=== PATIENT | male | born 1940 | race Caucasian/White ===

== ENCOUNTER 2018-06-15 14:32 | Inpatient (IN) ==
--- NOTE | 2018-06-15 17:49 | Urology - Consult Note ---
Date of Encounter: 06/15/18 Time of Encounter: 17:47 - Assessment and Plan (1) Hematuria, gross Current Visit: Yes Status: Acute Assessment and plan: Likely from multiple attempts at catheter placement at the outside facility. Hopefully will resolve with catheter drainage. If no resolution may need to change to a larger catheter. Hold all anticoagulation if possible (2) Urinary retention Current Visit: Yes Status: Acute Assessment and plan: Unknown etiology but may be from urethral stricture or BPH. Difficulty placing Holliday catheter to outside facility. Continue catheter drainage at least 1 week prior to removal to allow return of elasticity of the bladder. May need to change larger catheter if it seems to be providing unreliable urinary drainage (3) Renal insufficiency Current Visit: Yes Status: Acute Assessment and plan: Unknown baseline creatinine. Postobstructive renal insufficiency needs to be considered. We will reevaluate creatinine in the morning. If still elevated may consider ultrasound. Urology CN:HAIDER Consult date: 06/15/18 Reason for consult Urology: Gross Hematuria History of present illness: 77-year-old male. Transfer from [facility]. New to the urology service. 3 month history of difficulty urinating. He went to [facility] emergency room and they attempted to place a 16 and 14-Georgian catheter without success. They were eventually able to place a 12-Georgian catheter with return of 1000 mL of urine which was bloody. He was transferred to our facility for urologic management. Incidentally his creatinine was found to be over 3. Patient is unsure of his baseline Past Med Surg Social Fam HX - Past Medical History Medical history: atrial fibrillation, dementia, glaucoma, hyperlipidemia, hypertension - Past Surgical History Surgical History: pacemaker/AICD, pacemaker - Social History Smoking Status: Never smoker Alcohol use: none Drug use: none Medications and Allergies Brimonidine Tartrate [Brimonidine Tartrate] 1 drop RIGHT EYE BID 06/15/18 [ History] Donepezil [Aricept] 10 mg PO DAILY 06/15/18 [History] Latanoprost [Xalatan] 1 drop BOTH EYES HS 06/15/18 [History] Simvastatin [Zocor] 40 mg PO DAILY 06/15/18 [History] 3 Allergy/AdvReac Type Severity Reaction Status Date / Time No Known Allergies Allergy Verified 06/15/18 17:04 Review of Systems - Constitutional no chills, no fever(s) - EENT Nose, mouth and throat: no dizziness - Cardiovascular no chest pain - Respiratory no cough - Gastrointestinal abdominal pain - Genitourinary difficulty urinating, hematuria - Musculoskeletal back pain - Integumentary no erythema - Neurological no confusion - Psychiatric no anxiety - Hematologic/Lymphatic no easy bleeding - Allergic/Immunologic no throat swelling Exam Initial Vital Signs Temp Pulse Resp BP Pulse Ox 99.1 F 66 16 190/87 95 06/15/18 17:10 06/15/18 17:10 06/15/18 17:10 06/15/18 17:10 06/15/18 17:10 - General physical appearance Present: no distress, no pain - Eyes Present: PERRL - ENT Present: normal nares - Neck Present: no masses - Respiratory Present: normal respiratory effort - Cardiovascular Cardiovascular exam IM: RRR - Abdomen Abdomen: Present: soft. Absent: suprapubic tenderness - Genitourinary normal penis with no external lesions (Dry blood) - Neurologic Present: normal coordination, confused (Patient answered most questions appropriately but did talk about multiple things not pertinent to the current situation including his dislike for coffee and information regarding his primary care physician.). Absent: disoriented - Additional Findings 12-Georgian Holliday catheter in place draining transparent lightly hematuric urine Urology Results - Labs All other labs normal. Consult Discharge Plan - Plan Referrals: Kenn Seals DO [Primary Care Provider] -
[2018-06-15] MEDS ORDERED: Naloxone 0.4 MG/ML INJ IVP PRN (18:26)
[2018-06-15] MEDS: 0.9 % Sodium Chloride 1,000 ML IVC SCH (19:12)
--- NOTE | 2018-06-15 20:11 | Internal Med History&Physical ---
Date of Encounter: 06/15/18 Time of Encounter: 19:00 Internal Medicine - H&P: HPI Chief complaint: Difficulty voiding Admitted From: Emergency Dept Plans for Post Hospital Care: Home History of present illness: HPI: Mr. Guzman is a 77 year old male. He has had progressing difficulty voiding for the last 34 weeks. It got significantly worse in the last her 45 days. He developed suprapubic discomfort; relieved by insertion of Holliday catheter. It was done at [facility]'s emergency room. The catheterization was somewhat difficult. They attempted a few/several times. They obtained a 1.5/L of red color urine. The patient's urine tested before insertion of Holliday catheter did not show any blood or other abnormalities. Blood testing revealed BUN of 29 and creatinine of 3.0. Sodium was 150 with potassium of 4.1, chloride of 111 and bicarb of 28. Hemoglobin is 13.6 with WBC of 7.06 thousand and platelet count of 193,000. The patient does have only very few medical problems. He is treated for hyperlipidemia and mild dementia. He is treated for glaucoma and cataracts. He had a cardiac pacemaker inserted a couple years ago for treatment of atrial fibrillation/sinus bradycardia. I saw his telemetry strips. They show a paced rhythm with heart rate of 61. REVIEW OF SYSTEMS: All 14 organ systems were reviewed by me with the patient. Positive and pertinent negative findings are listed above. The rest of organ systems is negative. PHYSICAL EXAM: Skin: Free of rash and discoloration. Eyes: Sclera is white. There is no discharge from eyes. ENMT: Oral/pharyngeal mucosa is normal in appearance. There is no discharge from nose or ears. Respiratory: Normal breath sounds with no crackles and wheezes bilaterally. CV: Heart is regular with no gallop or murmur. GI: Abdomen is flat and soft with no palpable mass or visceromegaly. : There is no tenderness in patient's flanks bilaterally. Holliday catheter is inserted. I can see a large amount of red color urine in the gravity bag. Neuro exam: He has good strength in upper and lower extremities. He has normal eye movements. Psychiatric: He has normal affect. His thought process is appropriate to the situation. A/P: Acute kidney injury. It is likely due to urinary obstruction/urinary retention. It is either BPH or urethral stricture. We will keep Holliday catheter in. We will give him IV normal saline at 100 cc/h. Urology is consulted. Hypernatremia. It should get better with IV normal saline. This is likely reactive. Hyperlipidemia. Will continue niacin and simvastatin. His other medical problems are less significant; see above. Past Med Surg Social Fam HX - Past Medical History Medical history: atrial fibrillation, dementia, glaucoma, hyperlipidemia, hypertension - Past Surgical History Surgical History: pacemaker/AICD, pacemaker - Social History Smoking Status: Never smoker Alcohol use: none Drug use: none Internal Medicine - H&P: Meds Brimonidine Tartrate [Brimonidine Tartrate] 1 drop RIGHT EYE BID 06/15/18 [ History] Donepezil [Aricept] 10 mg PO DAILY 06/15/18 [History] Latanoprost [Xalatan] 1 drop BOTH EYES HS 06/15/18 [History] Simvastatin [Zocor] 40 mg PO DAILY 06/15/18 [History] 3 Allergy/AdvReac Type Severity Reaction Status Date / Time No Known Allergies Allergy Verified 06/15/18 17:04 - Constitutional Vitals: Temp Pulse Resp BP Pulse Ox 99.1 F 66 16 190/87 95 06/15/18 17:10 06/15/18 17:10 06/15/18 17:10 06/15/18 17:10 06/15/18 17:10 General appearance: Present: A&O X 3, no acute distress, answers questions appropriately - Assessment and plan (1) MARCY (acute kidney injury) Current Visit: Yes Status: Acute (2) Urinary obstruction Current Visit: Yes Status: Acute (3) Hematuria, gross Current Visit: Yes Status: Acute (4) HLD (hyperlipidemia) Current Visit: Yes Status: Acute Qualifiers: Hyperlipidemia type: unspecified Qualified Code(s): E78.5 - Hyperlipidemia , unspecified - Time Spent With Patient Total time spent is greater than 50% in coordination of care (as documented) at patient's floor/unit and/or counseling patient: Greater than 35 minutes
[2018-06-15] MEDS: Latanoprost 2.5 ML BOTTLE BOTH EYES SCH (21:42)
[2018-06-16] MEDS ORDERED: Ziprasidone injection 20 MG/ML VIAL IM ONE (00:44)
[2018-06-16] MEDS: 0.9 % Sodium Chloride 1,000 ML IVC SCH (05:20)
[2018-06-16 06:15] LABS: Basophils % 0.2 %; Eosinophils % 0.3 %; Hematocrit 45.2 % (37.5-50.1); Hemoglobin 15.4 g/dL (12.9-16.9); Immature Granulocytes % 0.7 % (0-4); Lymphocytes # 1.2 K/mcL (0.6-4.6); Lymphocytes % 13.7 %; Mean Corpuscular HGB Conc 34.1 g/dL (31.6-35.5); Mean Corpuscular Hemoglobin 33.9 pg (28.0-33.3); Mean Corpuscular Volume 99.6 fL (83.0-100.0); Mean Platelet Volume 9.4 fL (9.4-12.4); Monocytes # 0.7 K/mcL (0.0-1.3); Monocytes % 8.2 %; Neutrophils # 6.8 K/mcL (1.6-8.9); Platelet Count 175 K/mcL (140-400); Red Blood Count 4.54 M/mcL (4.19-5.50); Red Cell Distribution Width 12.3 % (11.5-14.5); Segmented Neutrophils % 76.9 %
[2018-06-16 07:08] LABS: Calcium 8.3 mg/dL (8.6-10.3); Magnesium 1.9 mg/dL (1.6-2.6); Potassium 3.9 mEq/L (3.5-5.1)
--- NOTE | 2018-06-16 20:11 | Internal Med Progress Note ---
Hospitalist Progress Note - Encounter Date of Encounter: 06/18/18 Time of Encounter: 16:00 - Exam Vitals: Temp Pulse Resp BP Pulse Ox 97.7 F 76 18 165/86 94 06/16/18 19:07 06/16/18 19:07 06/16/18 19:07 06/16/18 19:07 06/16/18 19:07 Exam: xxx - Assessment and Plan (1) MARCY (acute kidney injury) Current Visit: Yes Status: Acute (2) Urinary obstruction Current Visit: Yes Status: Acute (3) Hematuria, gross Current Visit: Yes Status: Acute (4) Hypomagnesemia Current Visit: Yes Status: Acute DVT Prophylaxis: low risk - Summary of Assessment and Plan Summary of Assessment and Plan: SUBJECTIVE: The patient feels good today. His confusion subsided. I met him and his around 4 PM. According to his , he is pretty much baseline. Denies abdominal pain, nausea and vomiting. Holliday catheter is inserted. It is draining normal color urine. OBJECTIVE: Skin: Free of rash and discoloration. ENMT: Oral/pharyngeal mucosa is normal in appearance. Eyes: Sclera is white. There is no discharge from eyes. Respiratory: Normal breath sounds; no crackles or wheezes. CV: Heart is regular; no gallop or murmur. GI: Abdomen is soft and not tender. There is no palpable mass or visceromegaly. : Holliday catheter is in. It is draining normal color urine. Neuro: There is no focal deficits. ASSESSMENT AND PLAN: Acute kidney injury. Secondary to urinary obstruction. Holliday catheter is inserted. It was stayed there for a week or two. See notes from urology. His today's creatinine is 1.44; 1.82 yesterday. He had a fever of 100.8 today. We will check his UA and urine culture/sensitivity. Confusion. Likely secondary to his underlying dementia together with hospital surroundings. Better. We will continue Zyprexa at 2.5 mg by mouth daily at bedtime. Hematuria. Subsided. Likely secondary to traumatic catheterization of bladder. We cannot rule out bladder mass or other urologic problem. Hypernatremia. His sodium decreased from 150 to 141. Hypomagnesemia. Will give him 2 g of IV magnesium sulfate. Disposition. The patient will be likely discharged tomorrow morning. Holliday catheter will stay in. Urology is planning greenlight photo vaporization of the prostate In outpatient settings. - Time Spent with Patient Total time spent is greater than 50% in coordination of care (as documented) at patient's floor/unit and/or counseling patient: 25 - 35 minutes Plan of Care Discussed with: patient Internal Medicine: Result - Labs CBC & Chem 7: 06/18/18 06:48 06/18/18 06:48 Labs: Short CBC 06/16/18 Range/Units 05:55 WBC 8.9 (4.3-11.1) K/mcL Hgb 15.4 (12.9-16.9) g/dL Hct 45.2 (37.5-50.1) % Plt Count 175 (140-400) K/mcL Neutrophils # 6.8 (1.6-8.9) K/mcL BMP 06/16/18 05:55 Sodium 145 Potassium 3.9 Chloride 111 H Carbon Dioxide 25 BUN 31 H Creatinine 2.52 H Glucose 148 H Calcium 8.3 L - Impressions Impressions Retroperitoneum Ultrasound 06/16/18 17:00 IMPRESSION: Bilateral significant hydronephrosis and proximal bilateral hydroureter. Enlarged prostate. Bladder wall thickening without intraluminal mass. D/ / 06/16/2018 19:21:46 Jeanette Roberson MD / elise Interpreting Provider: Jeanette Roberson MD Consult Discharge Plan - Plan Referrals: Kenn Seals DO [Primary Care Provider] -
--- NOTE | 2018-06-16 20:19 | Internal Med Progress Note ---
Hospitalist Progress Note - Encounter Date of Encounter: 06/16/18 Time of Encounter: 19:00 - Exam Vitals: Temp Pulse Resp BP Pulse Ox 97.7 F 76 18 165/86 94 06/16/18 19:07 06/16/18 19:07 06/16/18 19:07 06/16/18 19:07 06/16/18 19:07 Exam: xxx - Assessment and Plan (1) MARCY (acute kidney injury) Current Visit: Yes Status: Acute (2) Urinary obstruction Current Visit: Yes Status: Acute (3) Hematuria, gross Current Visit: Yes Status: Acute (4) HLD (hyperlipidemia) Current Visit: Yes Status: Acute DVT Prophylaxis: low risk - Summary of Assessment and Plan Summary of Assessment and Plan: SUBJECTIVE: The patient feels good. He is not voicing any particular problems. According to his family he is mildly confused at times. I could not see his confusion at the time of my visit. Holliday catheter is in is draining reddish color urine. Denies nausea and vomiting. Denies abdominal pain. Denies chest pain, dyspnea, coughing and wheezing. OBJECTIVE: Skin: Free of rash and discoloration. ENMT: Oral/pharyngeal mucosa is normal in appearance. Eyes: Sclera is white. There is no discharge from eyes. Respiratory: Normal breath sounds; no crackles or wheezes. CV: Heart is regular; no gallop or murmur. GI: Abdomen is soft and not tender. There is no palpable mass or visceromegaly. Neuro: There is no focal deficits. ASSESSMENT AND PLAN: Acute kidney injury. Secondary to urinary obstruction. Yesterday creatinine was 3.0; it is at 2.52 today. He has normal electrolytes. We will keep Holliday catheter in. We will continue IV fluids. We will be checking his BMP every morning. Urology is to decide about further management for this patient. Urinary obstruction. He will likely benefit from cystoscopy. I will start him on Flomax. Hematuria. Likely secondary to traumatic catheterization of bladder. We cannot rule out bladder mass or other urologic problem. Hypernatremia. His sodium decreased from 150 to 145. We will monitor it closely. - Time Spent with Patient Total time spent is greater than 50% in coordination of care (as documented) at patient's floor/unit and/or counseling patient: 25 - 35 minutes Plan of Care Discussed with: patient Internal Medicine: Result - Labs CBC & Chem 7: 06/16/18 05:55 06/16/18 05:55 Labs: Short CBC 06/16/18 Range/Units 05:55 WBC 8.9 (4.3-11.1) K/mcL Hgb 15.4 (12.9-16.9) g/dL Hct 45.2 (37.5-50.1) % Plt Count 175 (140-400) K/mcL Neutrophils # 6.8 (1.6-8.9) K/mcL BMP 06/16/18 05:55 Sodium 145 Potassium 3.9 Chloride 111 H Carbon Dioxide 25 BUN 31 H Creatinine 2.52 H Glucose 148 H Calcium 8.3 L - Impressions Impressions Retroperitoneum Ultrasound 06/16/18 17:00 IMPRESSION: Bilateral significant hydronephrosis and proximal bilateral hydroureter. Enlarged prostate. Bladder wall thickening without intraluminal mass. D/ / 06/16/2018 19:21:46 Jeanette Roberson MD / [email or web address] Interpreting Provider: Jeanette Roberson MD Consult Discharge Plan - Plan Referrals: Kenn Seals DO [Primary Care Provider] - (4) HLD (hyperlipidemia) Qualifiers: Hyperlipidemia type: unspecified Qualified Code(s): E78.5 - Hyperlipidemia, unspecified
[2018-06-16] MEDS: Latanoprost 2.5 ML BOTTLE BOTH EYES SCH (21:04)
[2018-06-17 06:56] LABS: Basophils % 0.4 %; Eosinophils # 0.2 K/mcL (0.0-0.6); Eosinophils % 2.4 %; Hematocrit 41.5 % (37.5-50.1); Hemoglobin 14.2 g/dL (12.9-16.9); Immature Granulocytes % 0.2 % (0-4); Lymphocytes # 1.2 K/mcL (0.6-4.6); Lymphocytes % 13.4 %; Mean Corpuscular HGB Conc 34.2 g/dL (31.6-35.5); Mean Corpuscular Hemoglobin 33.3 pg (28.0-33.3); Mean Corpuscular Volume 97.2 fL (83.0-100.0); Mean Platelet Volume 9.8 fL (9.4-12.4); Monocytes # 0.7 K/mcL (0.0-1.3); Monocytes % 7.8 %; Neutrophils # 6.9 K/mcL (1.6-8.9); Platelet Count 191 K/mcL (140-400); Red Blood Count 4.27 M/mcL (4.19-5.50); Red Cell Distribution Width 12.3 % (11.5-14.5); Segmented Neutrophils % 75.8 %
[2018-06-17 07:10] LABS: Calcium 8.1 mg/dL (8.6-10.3); Potassium 3.5 mEq/L (3.5-5.1)
--- NOTE | 2018-06-17 09:26 | Urology Progress Note ---
Date of Encounter: 06/17/18 Time of Encounter: 09:23 - Assessment and Plan (1) Hematuria, gross Current Visit: Yes Status: Acute (2) Urinary retention Current Visit: Yes Status: Acute Assessment and plan: See procedure note. I was able to place 16-Vietnamese Holliday catheter. Urine was fairly clear. This catheter is going to need to stay in place at least 1-2 weeks. There is no alternative to this option. Hydronephrosis on ultrasound noted. This is likely secondary to long-standing outlet obstruction. His renal function has improved significantly over the last 2 days and I do not feel he requires ureteral stent placement or nephrostomy tube placement for the hydronephrosis. The patient's mental status is a concern. He may be a danger to himself with the indwelling catheter in place. Need to provide a sitter and/ or restraints. This also may present an issue at discharge. (3) Renal insufficiency Current Visit: Yes Status: Acute Progress Note Narrative: Patient with confusion. He removed the catheter he had an admission using his fingernail. A pediatric catheter was replaced and he traumatically removed the catheter with the balloon inflated. Objective Initial Vital Signs Temp Pulse Resp BP Pulse Ox 99.1 F 66 16 190/87 95 06/15/18 17:10 06/15/18 17:10 06/15/18 17:10 06/15/18 17:10 06/15/18 17:10 - General physical appearance Present: no distress - Additional Exam Dried blood around the meatus. - Labs 06/17/18 06:00 06/17/18 06:00 Diabetes panel 06/17/18 Range/Units 06:00 Sodium 142 (136-145) mEq/L Potassium 3.5 (3.5-5.1) mEq/L Chloride 108 H (98-107) mEq/L Carbon Dioxide 28 (23-29) mEq/L BUN 30 H (8-23) mg/dL Creatinine 1.82 H (0.70-1.30) mg/dL Glucose 116 H (70-105) mg/dL Calcium 8.1 L (8.6-10.3) mg/dL Calcium panel 06/17/18 Range/Units 06:00 Calcium 8.1 L (8.6-10.3) mg/dL Pituitary panel 06/17/18 Range/Units 06:00 Sodium 142 (136-145) mEq/L Potassium 3.5 (3.5-5.1) mEq/L Chloride 108 H (98-107) mEq/L Carbon Dioxide 28 (23-29) mEq/L BUN 30 H (8-23) mg/dL Creatinine 1.82 H (0.70-1.30) mg/dL Glucose 116 H (70-105) mg/dL Calcium 8.1 L (8.6-10.3) mg/dL Adrenal panel 06/17/18 Range/Units 06:00 Sodium 142 (136-145) mEq/L Potassium 3.5 (3.5-5.1) mEq/L Chloride 108 H (98-107) mEq/L Carbon Dioxide 28 (23-29) mEq/L BUN 30 H (8-23) mg/dL Creatinine 1.82 H (0.70-1.30) mg/dL Glucose 116 H (70-105) mg/dL Calcium 8.1 L (8.6-10.3) mg/dL Consult Discharge Plan - Plan Referrals: Kenn Seals DO [Primary Care Provider] -
[2018-06-17] MEDS ORDERED: 0.9 % Sodium Chloride w KCl 20 MEQ/1,000 ML MLS IVC SCH (16:30)
[2018-06-17] MEDS: Latanoprost 2.5 ML BOTTLE BOTH EYES SCH (21:12)
[2018-06-17] MEDS: OLANZapine 5 MG TAB.RAPDIS PO SCH (21:13)
--- NOTE | 2018-06-17 21:26 | Internal Med Progress Note ---
Hospitalist Progress Note - Encounter Date of Encounter: 06/17/18 Time of Encounter: 19:00 - Exam Vitals: Temp Pulse Resp BP Pulse Ox 99.6 F 84 18 142/81 93 06/17/18 18:58 06/17/18 18:58 06/17/18 18:58 08 18:58 06/17/18 18:58 Exam: xxx SUBJECTIVE: The patient was quite confused last night. He received 1 dose of intramuscular Geodon. He continues to have mild confusion. He knows his first name/last name. Otherwise, he is disoriented. Denies having any particular problems. Denies chest pain, dyspnea, coughing and wheezing. Denies abdominal pain, nausea and vomiting. Holliday catheter is in. It is draining a reddish color urine. I saw this patient in the morning. A few hours later they called me about this patient pulling out his Holliday catheter. It was reinserted by urology. We offered him a sitter. OBJECTIVE: Skin: Free of rash and discoloration. ENMT: Oral/pharyngeal mucosa is normal in appearance. Eyes: Sclera is white. There is no discharge from eyes. Respiratory: Normal breath sounds; no crackles or wheezes. CV: Heart is regular; no gallop or murmur. GI: Abdomen is soft and not tender. There is no palpable mass or visceromegaly. : Holliday catheter is in. It is draining a reddish color urine. Neuro: There is no focal deficits. ASSESSMENT AND PLAN: Acute kidney injury. Secondary to urinary obstruction. See notes from urology. His today's creatinine is 1.82; 2.52 yesterday. We will continue IV fluids with addition of potassium chloride (has mild acute hypokalemia). We will keep him on Flomax at 0.8 mg daily assuming that his urinary obstruction is secondary to BPH. Holliday catheter will have to stay in for 12 weeks. Confusion. Likely secondary to his underlying dementia together with hospital surroundings. I will start him on low-dose Zyprexa. He will have a sitter. Hematuria. Likely secondary to traumatic catheterization of bladder. We cannot rule out bladder mass or other urologic problem. Hypernatremia. His sodium decreased from 150 to 142. We will monitor it. - Assessment and Plan (1) MACRY (acute kidney injury) Current Visit: Yes Status: Acute (2) Confusion Current Visit: Yes Status: Acute (3) Urinary obstruction Current Visit: Yes Status: Acute (4) Hematuria, gross Current Visit: Yes Status: Acute DVT Prophylaxis: low risk - Summary of Assessment and Plan Summary of Assessment and Plan: SUBJECTIVE: The patient has developed confusion. He knows his first name/last name. Otherwise, he is disoriented. Denies having pain or difficulty breathing. Holliday catheter had to be reinserted by urology, as he pulled out the previous one. The patient received the sitter to supervise him. OBJECTIVE: Skin: Free of rash and discoloration. ENMT: Oral/pharyngeal mucosa is normal in appearance. Eyes: Sclera is white. There is no discharge from eyes. Respiratory: Normal breath sounds; no crackles or wheezes. CV: Heart is regular; no gallop or murmur. GI: Abdomen is soft and not tender. There is no palpable mass or visceromegaly. : There is no tenderness in the flanks bilaterally. Neuro: There is no focal deficits. ASSESSMENT AND PLAN: Acute kidney injury. Secondary to urinary tract obstruction. Likely secondary to BPH (or urethral stricture). Urology is consulted. His creatinine is 1.82; 2.52 yesterday. His potassium is 3.5; 3.9 yesterday. We will continue IV fluids with potassium chloride. The patient is started on Flomax at 0.8 mg by mouth once a day. Confusion. The patient has underlying dementia. We will start low-dose Zyprexa. Hematuria. Likely secondary to traumatic cardiac catheterization he had before this admission. The patient will benefit from cystoscopy. It would likely be done in 12 weeks. - Time Spent with Patient Total time spent is greater than 50% in coordination of care (as documented) at patient's floor/unit and/or counseling patient: 25 - 35 minutes Internal Medicine: Result - Labs CBC & Chem 7: 06/17/18 06:00 06/17/18 06:00 Labs: Short CBC 06/17/18 Range/Units 06:00 WBC 9.2 (4.3-11.1) K/mcL Hgb 14.2 (12.9-16.9) g/dL Hct 41.5 (37.5-50.1) % Plt Count 191 (140-400) K/mcL Neutrophils # 6.9 (1.6-8.9) K/mcL BMP 06/17/18 06:00 Sodium 142 Potassium 3.5 Chloride 108 H Carbon Dioxide 28 BUN 30 H Creatinine 1.82 H Glucose 116 H Calcium 8.1 L Consult Discharge Plan - Plan Referrals: Kenn Seals DO [Primary Care Provider] -
[2018-06-18 07:20] LABS: Basophils % 0.2 %; Eosinophils # 0.2 K/mcL (0.0-0.6); Hematocrit 38.9 % (37.5-50.1); Hemoglobin 13.2 g/dL (12.9-16.9); Immature Granulocytes % 0.7 % (0-4); Immature Platelets 2.2 % (1.1-6.1); Lymphocytes # 1.4 K/mcL (0.6-4.6); Lymphocytes % 17.4 %; Mean Corpuscular HGB Conc 33.9 g/dL (31.6-35.5); Mean Corpuscular Hemoglobin 32.8 pg (28.0-33.3); Mean Corpuscular Volume 96.5 fL (83.0-100.0); Mean Platelet Volume 9.3 fL (9.4-12.4); Monocytes # 0.6 K/mcL (0.0-1.3); Monocytes % 7.5 %; Neutrophils # 5.7 K/mcL (1.6-8.9); Platelet Count 179 K/mcL (140-400); Red Blood Count 4.03 M/mcL (4.19-5.50); Red Cell Distribution Width 12.1 % (11.5-14.5); Segmented Neutrophils % 71.2 %
[2018-06-18 07:30] LABS: Calcium 7.8 mg/dL (8.6-10.3); Potassium 3.4 mEq/L (3.5-5.1)
--- NOTE | 2018-06-18 09:38 | Urology Progress Note ---
Date of Encounter: 06/18/18 Time of Encounter: 09:36 - Assessment and Plan (1) Hematuria, gross Current Visit: Yes Status: Acute (2) Urinary retention Current Visit: Yes Status: Acute Assessment and plan: The patient's was available for discussion today. She feels comfortable taking care of him and he does appear less confused with her present. Probably okay for discharge in his 's care. Catheter needs to stay in place at discharge. I will plan a greenlight photo vaporization of the prostate and my office will contact the patient with the OR date. We will leave the catheter in place until the procedure was performed. (3) Renal insufficiency Current Visit: Yes Status: Acute Progress Note Narrative: Patient seems to be doing better with the 16-[place]ankan indwelling catheter. No further issues with traumatic catheter removal overnight. Urine has cleared. Creatinine down to 1.44. Objective Initial Vital Signs Temp Pulse Resp BP Pulse Ox 99.1 F 66 16 190/87 95 06/15/18 17:10 06/15/18 17:10 06/15/18 17:10 06/15/18 17:10 06/15/18 17:10 - General physical appearance Present: no distress - Additional Exam Urine clear. - Labs 06/18/18 06:48 06/18/18 06:48 Diabetes panel 06/18/18 Range/Units 06:48 Sodium 141 (136-145) mEq/L Potassium 3.4 L (3.5-5.1) mEq/L Chloride 110 H (98-107) mEq/L Carbon Dioxide 26 (23-29) mEq/L BUN 23 (8-23) mg/dL Creatinine 1.44 H (0.70-1.30) mg/dL Glucose 118 H (70-105) mg/dL Calcium 7.8 L (8.6-10.3) mg/dL Calcium panel 06/18/18 Range/Units 06:48 Calcium 7.8 L (8.6-10.3) mg/dL Pituitary panel 06/18/18 Range/Units 06:48 Sodium 141 (136-145) mEq/L Potassium 3.4 L (3.5-5.1) mEq/L Chloride 110 H (98-107) mEq/L Carbon Dioxide 26 (23-29) mEq/L BUN 23 (8-23) mg/dL Creatinine 1.44 H (0.70-1.30) mg/dL Glucose 118 H (70-105) mg/dL Calcium 7.8 L (8.6-10.3) mg/dL Adrenal panel 06/18/18 Range/Units 06:48 Sodium 141 (136-145) mEq/L Potassium 3.4 L (3.5-5.1) mEq/L Chloride 110 H (98-107) mEq/L Carbon Dioxide 26 (23-29) mEq/L BUN 23 (8-23) mg/dL Creatinine 1.44 H (0.70-1.30) mg/dL Glucose 118 H (70-105) mg/dL Calcium 7.8 L (8.6-10.3) mg/dL Consult Discharge Plan - Plan Referrals: Kenn Seals DO [Primary Care Provider] -
[2018-06-18] MEDS ORDERED: Magnesium Sulfate 2 GM/100 ML PIGGYBACK IVPB ONE (15:00)
[2018-06-18] MEDS: Latanoprost 2.5 ML BOTTLE BOTH EYES SCH (21:22)
[2018-06-18 21:30] LABS: Bilirubin,Urine Negative (Negative); Blood,Urine Large (Negative); Clarity,Urine Cloudy (Clear); Color,Urine Yellow (Yellow); Glucose,Urine (UA) Normal (Normal); Ketones,Urine Negative (Negative); Leukocyte Esterase,Urine Small (Negative); Nitrite,Urine Negative (Negative); Protein,Urine 100 mg/dL (Neg-Trace); Specific Gravity,Urine < 1.005 (1.010-1.025); Urobilinogen,Urine Normal (Normal)
[2018-06-18 21:31] LABS: Hyaline Casts,Urine None Seen per lpf (None-Few)
[2018-06-18 21:39] LABS: Squamous Epithelial Cell,Urine Few per lpf (None-Few)
[2018-06-18 21:40] LABS: Bacteria,Urine Many per hpf (None-Few)
[2018-06-18] MEDS: OLANZapine 5 MG TAB.RAPDIS PO SCH (21:50)
[2018-06-19 05:01] LABS: Basophils % 0.5 %; Eosinophils # 0.3 K/mcL (0.0-0.6); Eosinophils % 4.4 %; Hemoglobin 13.5 g/dL (12.9-16.9); Immature Granulocytes % 0.3 % (0-4); Lymphocytes # 1.5 K/mcL (0.6-4.6); Lymphocytes % 23.5 %; Mean Corpuscular HGB Conc 34.6 g/dL (31.6-35.5); Mean Corpuscular Hemoglobin 34.3 pg (28.0-33.3); Mean Platelet Volume 9.5 fL (9.4-12.4); Monocytes # 0.6 K/mcL (0.0-1.3); Monocytes % 9.3 %; Neutrophils # 3.9 K/mcL (1.6-8.9); Platelet Count 154 K/mcL (140-400); Red Blood Count 3.94 M/mcL (4.19-5.50)
[2018-06-19 05:22] LABS: BUN/Creatinine Ratio 20 (6-26); Blood Urea Nitrogen 27 mg/dL (8-23); Calcium 7.8 mg/dL (8.6-10.3); Carbon Dioxide 24 mEq/L (23-29); Chloride 108 mEq/L (98-107); Glucose 128 mg/dL (70-105); Osmolality,Calculated 295 (280-300); Potassium 3.4 mEq/L (3.5-5.1); Sodium 139 mEq/L (136-145); eGFR For Non-African Americans 50 (> 60)
--- NOTE | 2018-06-19 15:33 | Discharge Summary ---
Orders not resulted at time of discharge: Pending orders 06/18/18 20:45 Culture,Urine [RM] Routine Date of Encounter: 06/19/18 Time of Encounter: 15:30 - Discharge Diagnosis (1) MARCY (acute kidney injury) Priority: Primary Status: Acute (2) Urinary obstruction Priority: Primary Status: Acute (3) Confusion Priority: Secondary Status: Acute (4) Acute hypokalemia Priority: Secondary Status: Acute (5) Hematuria, gross Priority: Secondary Status: Resolved (6) Hypomagnesemia Priority: Secondary Status: Resolved Hospital course: We got this patient from [facility]'s emergency room. We admitted him with acute kidney injury resulting from progressing to urinary tract obstruction (the last 34 weeks). They had difficulty to put Holliday catheter in. Subsequently, the patient developed hematuria. He suffers creatinine was 3.00. We offered this patient IV fluids. We continued Holliday catheter. Urology was consulted. The patient was getting Flomax at 0.8 mg by mouth daily. He developed some confusion. Likely secondary to his underlying dementia and hospital environment. It was initially treated with Geodon. Then I put him on Zyprexa at 2.5 mg by mouth daily. The patient required a sitter to prevent him from pulling out Holliday catheter (did it on one occasion). He developed some hypokalemia and hypomagnesemia secondary to IV fluids. He got supplemental potassium chloride and magnesium sulfate. We started him on Coreg, as he developed hypertension. Eventually his mental status returned to normal. This was the day when we decided to get him home. His last creatinine was 1.38. It was associated with normal CBC. Sodium was normal. Potassium was 3.4. Magnesium was 2.0. CONDITION AT DISCHARGE: The patient feels good. He is not voicing any particular problems. Denies chest pain. Denies difficulty breathing. Holliday catheter is in. It is draining normal color urine. The patient ambulates on his own. He has normal speech/swallowing. Skin: Free of rash and discoloration. Respiratory: Normal breath sounds with no crackles and wheezes bilaterally. CV: Heart is regular with no gallop or murmur. GI: Abdomen is flat and soft with no palpable mass or visceromegaly. Neuro exam: There is no focal deficits. Normal speech, swallowing and gait. SEE DISCHARGE ORDERS/MEDICATIONS.. The patient will be taking Flomax, and Coreg in addition to his previous medications. He got a short course of Zyprexa Zydis and potassium chloride. Urology is to see him in about 10 days. He got home health to follow him at home. - Time Spent with Patient Total time spent providing and/or coordinating discharge services: Greater than 30 minutes (45 minutes) - Discharge Medications Prescriptions: Cefuroxime PO [Ceftin] 250 mg PO Q12HR 30 Days #60 tablet Carvedilol [Coreg] 3.125 mg PO BIDWM 30 Days #30 tablet OLANZapine [Zyprexa Zydis] 2.5 mg PO HS 30 Days #30 tab.rapdis Potassium Chloride 20 meq PO BIDWM 30 Days #60 tab.er.prt Tamsulosin [Flomax] 0.8 mg PO DAILY 30 Days #30 capsule Home Medications: Brimonidine Tartrate 1 drop RIGHT EYE BID 06/15/18 [History] Donepezil [Aricept] 10 mg PO DAILY 06/15/18 [History] Latanoprost [Xalatan] 1 drop BOTH EYES HS 06/15/18 [History] Simvastatin [Zocor] 40 mg PO DAILY 06/15/18 [History] Carvedilol [Coreg] 3.125 mg PO BIDWM 30 Days #30 tablet 06/19/18 [Rx] Cefuroxime PO [Ceftin] 250 mg PO Q12HR 30 Days #60 tablet 06/19/18 [Rx] OLANZapine [Zyprexa Zydis] 2.5 mg PO HS 30 Days #30 tab.rapdis 06/19/18 [Rx] Potassium Chloride 20 meq PO BIDWM 30 Days #60 tab.er.prt 06/19/18 [Rx] Tamsulosin [Flomax] 0.8 mg PO DAILY 30 Days #30 capsule 06/19/18 [Rx] Allergies/Adverse Reactions: 3 Allergy/AdvReac Type Severity Reaction Status Date / Time No Known Allergies Allergy Verified 06/21/18 10:49 Date of admission: 06/15/18 18:26 Primary care physician: Kenn Seals DO Consults: 06/15/18 19:53 Consult to Urology [CONS] Routine Consulting Provider: Urology Shelly Reason for Consult: MARCY; BPH with urinary obstruction Call Completed: Yes 06/17/18 10:54 Consult to Nurse'S Aides Teacher [CONS] Routine Reason for SW Consult: Discharge planning. Need for Indwelling catheter in which patient keeps removing. Discharging clinician: Mendel Mcdaniel Anticipated date of discharge: 06/19/18 - Constitutional Vitals: Temp Pulse Resp BP Pulse Ox 98.1 F 81 19 143/83 96 06/19/18 11:48 06/19/18 11:48 06/19/18 11:48 06/19/18 11:48 06/19/18 11:48 General appearance: Present: A&O X 2, no acute distress Exam: xxx - Patient Status Disposition: Home, Self-Care Condition: Fair Functional capacity at discharge: independent ambulation Overall status at discharge: patient is not back to baseline - Discharge Instructions Instructions: Urinary Retention in Men (GEN), Holliday Catheter Placement and Care (GEN) Follow Up With: Kenn Seals DO [Primary Care Provider] - 06/22/18 1:00 pm (Please follow up as schedule...) - Diet and Activity Activity: resume usual activities as tolerated Diet: low fat, low cholesterol - VTE Reasons for not Prescribing Prophylaxis: Treatment not Indicated - Low risk for VTE
[2018-06-19 15:37] VITALS: BP 155/94
--- NOTE | 2018-06-19 15:48 | Physician Discharge Referral ---
Home Health/Hosp Referral Info Transfer to: Home Health Attending Provider: Drew Mcdaniel Provider in Charge Post Discharge: PCP - Diagnosis (1) MARCY (acute kidney injury) Priority: Primary Status: Acute (2) Urinary obstruction Priority: Primary Status: Acute (3) Confusion Priority: Secondary Status: Acute (4) Acute hypokalemia Priority: Secondary Status: Acute (5) Hematuria, gross Priority: Secondary Status: Resolved (6) Hypomagnesemia Priority: Secondary Status: Resolved - Respiratory Orders None Smoking Cessation: Smoking cessation has been advised. For more information, call the [place] Tobacco Quit Line at 0-103-WTUC-NOW. - Diet/Nutrition Diet/Nutrition Orders: Cardiac - Activity Activity Orders: Up ad reny - Services Needed Following services are medically necessary services: Nursing Other Treatments: Holliday cath care. To monitor the pt's mental status.. - Transfer Medications Prescriptions: Cefuroxime PO [Ceftin] 250 mg PO Q12HR 30 Days #60 tablet Carvedilol [Coreg] 3.125 mg PO BIDWM 30 Days #30 tablet OLANZapine [Zyprexa Zydis] 2.5 mg PO HS 30 Days #30 tab.rapdis Potassium Chloride 20 meq PO BIDWM 30 Days #60 tab.er.prt Tamsulosin [Flomax] 0.8 mg PO DAILY 30 Days #30 capsule Home Medications: Brimonidine Tartrate 1 drop RIGHT EYE BID 06/15/18 [History] Donepezil [Aricept] 10 mg PO DAILY 06/15/18 [History] Latanoprost [Xalatan] 1 drop BOTH EYES HS 06/15/18 [History] Simvastatin [Zocor] 40 mg PO DAILY 06/15/18 [History] Carvedilol [Coreg] 3.125 mg PO BIDWM 30 Days #30 tablet 06/19/18 [Rx] Cefuroxime PO [Ceftin] 250 mg PO Q12HR 30 Days #60 tablet 06/19/18 [Rx] OLANZapine [Zyprexa Zydis] 2.5 mg PO HS 30 Days #30 tab.rapdis 06/19/18 [Rx] Potassium Chloride 20 meq PO BIDWM 30 Days #60 tab.er.prt 06/19/18 [Rx] Tamsulosin [Flomax] 0.8 mg PO DAILY 30 Days #30 capsule 06/19/18 [Rx] Allergies/Adverse Reactions: 3 Allergy/AdvReac Type Severity Reaction Status Date / Time No Known Allergies Allergy Verified 06/15/18 17:04 Certification: Further, I certify that my clinical findings support that this patient is homebound (i.e. absences from home require considerable and taxing effort and are for medical reasons or synagogue services or infrequently or short duration when for other reasons) because: Homebound Reason: Altered mental status requiring supervision when leaving home Attestation: My signature below is to certify that this patient is under my care and that I, or nurse practitioner, or a physician's research lab assistant working with me, has a face-to -face encounter with this patient.
== END 2018-06-19 16:59 | disposition home or self-care (01) | DRG 683 ==
LOC: 2ANU → SUATTDRO 18:26
PROVIDERS: ADMIT Internal Medicine; ATTEND Internal Medicine